=== PATIENT | male | born 1985 | race Caucasian/White ===

== ENCOUNTER 2025-03-11 17:42 | Emergency (ER) | payer BC ==
[~2025-03-11] VITALS: Ht 170.2 cm; Wt 74.8 kg
[2025-03-11 17:49] VITALS: TEMP 98.6
[2025-03-11] MEDS ORDERED: KETOROLAC TROMETHAMINE 15 MG/ML VIAL ONE (19:26)
[2025-03-11] MEDS ORDERED: ONDANSETRON 4 MG TAB.RAPDIS ONE (19:26)
[2025-03-11] MEDS ORDERED: ACETAMINOPHEN ES 500 MG TABLET ONE (19:26)
[2025-03-11] MEDS: KETOROLAC TROMETHAMINE 15 MG/ML VIAL IM ONE (19:33)
[2025-03-11] MEDS: ONDANSETRON 4 MG TAB.RAPDIS PO ONE (19:33)
[2025-03-11] MEDS: ACETAMINOPHEN ES 500 MG TABLET PO ONE (19:33)
[2025-03-11] MEDS ORDERED: ONDA4TAB5 PO (21:08)
[2025-03-11] MEDS ORDERED: IBUP-1957 PO (21:09)
[2025-03-11 21:22] VITALS: BP 127/79; O2SAT 100
== END 2025-03-11 21:22 | disposition home or self-care (01) ==
LOC: ER 17:48
DX: R42 Dizziness and giddiness (principal); M54.2 Cervicalgia; R11.0 Nausea; M25.512 Pain in left shoulder; R07.9 Chest pain, unspecified; V43.62XA Car passenger injured in collision with other type car in traffic accident, initial encounter; Y93.89 Activity, other specified; Y92.488 Other paved roadways as the place of occurrence of the external cause; Y99.8 Other external cause status
CPT/HCPCS: 99285; 70450; 71045; 96372; 72040; 73030; J1885; Q0162